=== PATIENT | male | born 1955 | race Caucasian/White ===

== ENCOUNTER 2019-02-10 12:37 | Outpatient (CLI) | payer MEDICARE ==
[~2019-02-10 12:37] MED LIST: ATOR40TA78 PO; GABA300C10 PO; METF500T17 PO; OMEP-110 PO; ROPI0.254 PO
[2019-02-10] MEDS ORDERED: LIDOCAINE-MPF 1%, 5ML ONE (13:01)
== END 2019-02-10 23:59 | disposition home or self-care (01) ==
LOC: RAD 12:37
PROVIDERS: ATTEND Otolaryngology
DX: R59.9 Enlarged lymph nodes, unspecified (principal)
CPT/HCPCS: 10005; 38505; 76942; 88184; 88185; 88305; 88341; 88342